=== PATIENT | female | born 1985 | race Caucasian/White ===

== ENCOUNTER 2017-02-23 10:27 | Inpatient (IN) | payer OTHER ==
[~2017-02-23] VITALS: Ht 165.1 cm; Wt 74.1 kg
[~2017-02-23 10:27] MED LIST: BIRTH CONTROL PILL; PREDNISONE10 MG PO; ZYRTEC5 MG PO
[2017-04-25] VITALS (9 sets, daily range): BP systolic 146–165; BP diastolic 98–130; PULSE 77–98; TEMP 98.1
[2017-04-25] MEDS ORDERED: PRENATAL1 TA7 PO (19:20)
[2017-04-25] MEDS ORDERED: GLUCOPHAGE500 MG/TAB PO (19:21)
[2017-04-25] MEDS ORDERED: TRANDATE 100MG100 MG PO (19:22)
[2017-04-25 21:56] LABS: BASO % 0.3 % (0.0-2.0); EOS # 0.2 (0.0-0.7); EOS % 2.2 % (0-4.0); GRAN # 7.2 (1.4-6.5); GRAN % 70.7 % (42.2-75.2); HEMATOCRIT 41.1 % (37.0-47.0); HEMOGLOBIN 14.4 g/dl (12.5-16.0); LYMPH % 19.6 % (20.0-51.0); MEAN CELL VOLUME 88 fl (80.0-100.0); MEAN CORPUSCULAR HEMOGLOBIN 31 pg (27.0-31.0); MEAN CORPUSCULAR HGB CONC 35 g/dl (33.0-37.0); MEAN PLATELET VOLUME 10.9 fl (7.4-10.4); MONO # 0.7 (0.1-0.6); MONO % 6.9 % (1.7-9.3); PLATELET COUNT 219 K/mm3 (130-400); RED BLOOD COUNT 4.69 M/mm3 (4.10-5.30); REDCELL DISTRIBUTION WIDTH-CV 12.2 % (11.5-14.5); WHITE BLOOD COUNT 10.2 K/mm3 (4.8-10.8)
[2017-04-26] VITALS (30 sets, daily range): BP systolic 118–186; BP diastolic 67–123; PULSE 76–120; TEMP 97.8–98.4
[2017-04-27 07:15] VITALS: BP 135/100; PULSE 85
[2017-04-27 16:10] VITALS: BP 156/100; PULSE 81; TEMP 97.8
[2017-04-27 20:00] VITALS: BP 139/91; PULSE 96; TEMP 97.8
[2017-04-28 07:30] VITALS: BP 137/98; PULSE 83; TEMP 97.4
[2017-04-28] MEDS ORDERED: IBU600 MG PO (08:13)
[2017-04-28] MEDS ORDERED: PERCOCET 325 MG1 TA2 PO (08:13)
== END 2017-04-28 11:05 | disposition home or self-care (01) | DRG 774 ==
LOC: EDSTATUS 04-20 08:05 → LDRO 04-20 10:27 → LDR 04-25 08:08 → OB 04-25 18:53 → LDR 04-25 18:53 → OB 04-26 07:00
PROVIDERS: Obstetrics & Gynecology
PROC: 10E0XZZ Delivery of Products of Conception, External Approach (ICD-10-PCS; principal; 2017-04-26)
PROC: 0KQM0ZZ Repair Perineum Muscle, Open Approach (ICD-10-PCS; 2017-04-26)
DX: O48.0 Post-term pregnancy (principal); O10.92 Unspecified pre-existing hypertension complicating childbirth; O36.0130 Maternal care for anti-D [Rh] antibodies, third trimester, not applicable or unspecified; O70.1 Second degree perineal laceration during delivery; O99.824 Streptococcus B carrier state complicating childbirth; Z3A.40 40 weeks gestation of pregnancy; Z37.0 Single live birth
CPT/HCPCS: J2400; J2540; J2590; J7120

== ENCOUNTER → 2018-01-24 | Outpatient (CLI) | payer OTHER ==
[~2018-01-24] MED LIST changes: +GLUCOPHAGE500 MG/TAB PO; +IBU600 MG PO; +PERCOCET 325 MG1 TA2 PO; +PRENATAL1 TA7 PO; +TRANDATE 100MG100 MG PO
== END ==
LOC: COL.CARD 08:25
DX: R00.2 Palpitations (principal)